=== PATIENT | male | born 1945 | race Caucasian/White ===

== ENCOUNTER 2020-10-08 12:27 | Day surgery (SDC) | payer MEDICARE, OTHER ==
[~2020-10-08] VITALS: Ht 177.8 cm; Wt 72.7 kg
[~2020-10-08 12:27] MED LIST: ALBU8.5H8 INH; ASPI-1026 PO; CHOL10003 PO; GLUC1TAB9 PO; HYDR-3237 PO; HYDR-826 PO; LISI-167 PO; MELO15TA24 PO; MULT-449 PO; ONDA4TAB13 SL; TAMS-11 PO; UMEC1DIS INH; VIT1CAPS11 PO
[2020-10-08] MEDS ORDERED: CHLORHEXIDINE 15 ML UDC ONE (13:14)
[2020-10-08 13:28] LABS: BASOPHILS % (AUTO) 1 % (0-1); EOSINOPHILS % (AUTO) 1 % (1-7); LYMPHOCYTES % (AUTO) 15 % (22-44); MEAN CORPUSCULAR HEMOGLOBIN 31.9 pg (27.5-34.5); MEAN CORPUSCULAR HGB CONC 35.3 g/dL (33.2-36.2); MONOCYTES % (AUTO) 7 % (2-9); NEUTROPHILS % (AUTO) 76 % (42-75); PLATELET COUNT 310 x10^3/uL (130-400); RED BLOOD COUNT 4.91 x10^6/uL (4.38-5.82); RED CELL DISTRIBUTION WIDTH 15.7 % (9.4-14.8)
[2020-10-08] MEDS ORDERED: CHLORHEXIDINE 15 ML UDC PO ONE (13:30)
[2020-10-08] MEDS ORDERED: LACTATED RINGERS 1,000 ML IV SCH (13:30)
[2020-10-08 13:36] LABS: INTERNATIONAL NORMALIZED RATIO 1.06 (0.93-1.1); PROTHROMBIN TIME 11.3 Seconds (9.6-11.5)
[2020-10-08 13:38] LABS: ANION GAP 6 mmol/L (5-15); CALCIUM 9.3 mg/dL (8.5-10.1); CHLORIDE 112 mmol/L (98-107); CREATININE 1.05 mg/dL (0.7-1.3)
[2020-10-08 13:45] VITALS: BP 185/98
[2020-10-08] MEDS ORDERED: hydrALAzine 20 MG/ML, 1ML ONE (13:47)
[2020-10-08] MEDS ORDERED: hydrALAzine 20 MG/ML, 1ML IV ONE (14:00)
[2020-10-08] MEDS ORDERED: OMNIPAQUE 350 MG/ML, 50 ML BOTTLE ONE (15:41)
[2020-10-08] MEDS ORDERED: PROPOFOL 10 MG/ML, 20ML ONE (15:49)
[2020-10-08] MEDS ORDERED: DEXAMETHASONE 4 MG/ML, 1ML ONE (15:49)
[2020-10-08] MEDS ORDERED: CEFAZOLIN 1,000 MG ONE ×2 (15:49→17:45)
[2020-10-08] MEDS ORDERED: ONDANSETRON 2MG/ML, 2ML ONE (15:49)
[2020-10-08] MEDS ORDERED: FENTANYL PF 100 MCG/2ML ONE ×2 (15:49→17:11)
[2020-10-08] MEDS ORDERED: SUCCINYLCHOLINE 20 MG/ML, 10ML ONE (16:25)
[2020-10-08] MEDS ORDERED: PHENYLEPHRINE 10 MG/ML ONE (16:25)
[2020-10-08] MEDS ORDERED: EPHEDRINE 50 MG/ML, 1ML ONE (16:25)
[2020-10-08] MEDS ORDERED: ONDANSETRON 2MG/ML, 2ML IVPush PRN (16:30)
[2020-10-08] MEDS ORDERED: MEPERIDINE/PF 25MG/0.5ML IVPush PRN (16:30)
[2020-10-08] MEDS ORDERED: OXYcodone 5 MG/5 ML ORAL.SOL UDC PO PRN (16:30)
[2020-10-08] MEDS ORDERED: HYDROmorphone 1 MG/ML, 1ML INJ IVPush PRN (16:30)
[2020-10-08] MEDS ORDERED: ACETAMINOPHEN 325 MG TABLET PO PRN (16:30)
[2020-10-08] MEDS ORDERED: FENTANYL PF 100 MCG/2ML IV PRN (16:30)
[2020-10-08] MEDS ORDERED: HYDROcodone/APAP 7.5-325MG/15ML UDC PO PRN (16:30)
[2020-10-08] MEDS ORDERED: PROMETHAZINE 25 MG/ML, 1ML IVPush PRN (16:30)
[2020-10-08] MEDS ORDERED: KETOROLAC 30 MG/1 ML ONE (17:55)
[2020-10-08] MEDS ORDERED: KETOROLAC 30 MG/1 ML IVPush SCH ×2 (18:00→19:00)
[2020-10-09] MEDS ORDERED: KETOROLAC 30 MG/1 ML IVPush SCH
== END 2020-10-08 19:10 | disposition home or self-care (01) ==
LOC: OUT 12:27
PROVIDERS: ATTEND Urology
DX: N13.2 Hydronephrosis with renal and ureteral calculous obstruction (principal); I10 Essential (primary) hypertension; Z20.822 Contact with and (suspected) exposure to COVID-19; Z79.01 Long term (current) use of anticoagulants; Z79.899 Other long term (current) drug therapy
CPT/HCPCS: 36415; 52356; 74018; 74420; 80048; 82360; 85025; 85610; 88300; 93005; C1726; C1769; C2617; J0330; J0360; J0690; J1100; J1885; J2370; J2405; J2704; J3010; J7120; Q9967; U0003; 76000